=== PATIENT | male | born 2000 | race African-American/Black ===

== ENCOUNTER 2024-10-09 19:38 | Emergency (ER) | payer SELFPAY ==
[2024-10-09 19:59] LABS: Absolute Basophils 0.1 K/uL (0-0.5); Absolute Eosinophils 0.4 K/uL (0-0.5); Absolute Lymphocytes (CBC) 1.8 K/uL (0.7-4.9); Absolute Monocytes 0.9 K/uL (0.1-1.3); Absolute Neutrophil 7.5 K/uL (1.8-8.0); Basophils % 0.5 % (0-1.3); Eosinophils % 3.7 % (0-4.4); Hematocrit 42.1 % (39.6-49.0); Hemoglobin 14.4 g/dL (13.6-17.9); MCH 28.2 pg (27.0-35.0); MCHC 34.3 g/dL (32.0-36.0); MCV 82.3 fL (80-100); MPV 9.3 fL (7.6-11.3); Monocytes % 8.5 % (3.3-12.3); Neutrophils % 70.3 % (41.7-73.7); Nucleated Red Blood Cells % 0.1 % (0-0); Platelets 208 thou/uL (152-406); RBC Red Blood Cell Count 5.11 M/uL (4.33-5.43); Red Cell Distribution Width 13.6 % (12.1-15.2)
[2024-10-09 20:05] LABS: PT Prothrombin Time 12.7 SECONDS (10-13.0); PTT, Activated Partial Thromb 25.5 SECONDS (27.2-37.4); Protime INR 1.12
[2024-10-09] MEDS ORDERED: NA CHLORIDE 0.9% 1,000 ML ONE (20:05)
[2024-10-09 20:27] LABS: ALT/SGPT 46 U/L (16-61); AST/SGOT 40 U/L (15-37); Albumin 3.8 g/dL (3.4-5.0); Alkaline Phosphatase 86 U/L (45-117); Anion Gap 9.7 mEq/L (5.0-15.0); BUN Blood Urea Nitrogen 15 mg/dL (7-18); Bicarbonate 27 mEq/L (21-32); Bilirubin Direct < 0.2 mg/dL (0-0.2); Bilirubin Indirect, Calculated 0.3 mg/dL (0.2-0.8); Bilirubin Total 0.5 mg/dL (0.2-1.0); Creatine Phosphokinase 1161 U/L (39-308); Globulin 3.7 g/dL (2.3-3.5); Glomerular Filtration Rate 80 ml/min (=/>90); Glucose Level 119 mg/dL (74-106); Magnesium 1.6 mg/dL (1.6-2.4); Potassium 3.7 mEq/L (3.5-5.1); Protein, Total 7.5 g/dL (6.4-8.2); Sodium Level 137 mEq/L (136-145); Troponin High Sensitivity 3.2 pg/mL (<58.9)
--- NOTE | 2024-10-09 22:20 | ER ---
Nurse's Notes [facility] Name: Marissa Davis Age: 24 yrs Sex: Male : 2000 Arrival Date: 10/09/2024 Time: 19:38 Bed 7 Private MD: Diagnosis: Rhabdomyolysis Presentation: 10/09 19:40 Chief complaint: EMS states: Called to patient's home for syncopal episode lasting cm10 approximately 3 minutes. Pt was diaphoretic upon EMS arrival. 19:40 Coronavirus screen: Client denies travel out of the [place] in the last 14 days. Ebola cm10 Screen: Patient denies travel to an Ebola-affected area in the 21 days before illness onset. Initial Sepsis Screen: Does the patient meet any 2 criteria? HR > 90 bpm. Does the patient have a suspected source of infection? No. Patient's initial sepsis screen is negative. Risk Assessment: Do you want to hurt yourself or someone else? Patient reports no desire to harm self or others. Onset of symptoms was October 09, 2024. Care prior to arrival: Medication(s) given: Normal saline infusion, 350mL IV initiated. 18 GA, in the left antecubital area, Glucose check: 90. 19:40 Method Of Arrival: EMS: [facility] cm10 21:09 Acuity: ZACK 3 kd3 Triage Assessment: 19:40 General: Appears in no apparent distress. comfortable, Behavior is calm, cooperative. cm10 Pain: Denies pain. Neuro: No deficits noted. Level of Consciousness is awake, alert, obeys commands, Oriented to person, place, time, situation, Appropriate for age Reports a syncopal episode. Respiratory: No deficits noted. Airway is patent Respiratory effort is even, unlabored, Respiratory pattern is regular, symmetrical. Historical: - Allergies: 21:11 No Known Allergies; cm10 - Home Meds: 21:11 None [Active]; cm10 - PMHx: 21:11 None; cm10 - PSHx: 21:11 Appendectomy; cm10 - Immunization history:: Adult Immunizations up to date. - Infectious Disease History:: Denies. - Social history:: Smoking status: Patient reports the use of cigarette tobacco products, denies chronic smoking, but will smoke occasionally, cigars. Screenin:51 [facility] ED Fall Risk Assessment (Adult) History of falling in the last 3 months, dd2 including since admission Yes- single mechanical fall (1 pt) Confusion or Disorientation No (0 pts) Intoxicated or Sedated No (0 pts) Impaired Gait No (0 pts) Mobility Assist Device Used No (0 pt) Altered Elimination No (0 pt) Score/Fall Risk Level 0 - 2 = Low Risk Oriented to surroundings, Maintained a safe environment, Educated pt \T\ family on fall prevention, incl call for assistance when getting out of bed, Assessed \T\ reinforced patient's understanding of fall precautions, Hourly rounding (assess needs \T\ fall precautionary measures) done. Abuse screen: Denies threats or abuse. Denies injuries from another. Nutritional screening: No deficits noted. Tuberculosis screening: No symptoms or risk factors identified. Assessment: 22:51 Neuro: Level of Consciousness is awake, alert, obeys commands, Oriented to person, kd3 place, time, situation. Cardiovascular: Rhythm is regular. Vital Signs: 19:40 BP 120 / 54; Pulse 100; Resp 18; Temp 99.5(O); Pulse Ox 100% on R/A; Weight 92.99 kg; oe Height 5 ft. 11 in. ; 19:49 BP 120 / 56 Supine; Pulse 89; Pulse Ox 100% on R/A; oe 19:52 BP 127 / 63 Sitting; Pulse 93; Pulse Ox 100% on R/A; oe 19:54 BP 129 / 74 Standing; Pulse 99; Pulse Ox 100% on R/A; oe 21:09 BP 121 / 67; Pulse 100; Resp 19; Pulse Ox 100% on R/A; kd3 22:52 BP 112 / 59; Pulse 78; Resp 19; Pulse Ox 99% on R/A; kd3 19:40 Body Mass Index 28.59 (92.99 kg, 180.34 cm) oe [place] Coma Score: 19:51 Eye Response: spontaneous(4). Motor Response: obeys commands(6). Verbal Response: dd2 oriented(5). Total: 15. ED Course: 19:39 Patient arrived in ED. vk 19:41 Shabana Whitehead FNP-C [facility]. kb 19:41 Naya Felipe MD is Attending Physician. kb 19:50 BALTAZAR GARCIA RN is Primary Nurse. dd2 19:51 Basic Metabolic Panel Sent. dd2 19:51 CBC with Diff Sent. dd2 19:51 Hepatic Function Sent. dd2 19:51 Magnesium Sent. dd2 19:51 Protime (+inr) Sent. dd2 19:51 Ptt, Activated Sent. dd2 19:51 Troponin High Sensitivity Sent. dd2 19:51 Initial lab(s) drawn, by me, sent to lab. EKG done, by ED staff, reviewed by Shabana MURDOCK. Maintain EMS IV. Dressing intact. Good blood return noted. Site clean \T\ dry. Gauge \T\ site: 18G LAC. Flushed with 10 mL NS IV was discontinued by the patient. is patent, is intact, with fluids infusing freely, with good blood return. Patient maintains SpO2 saturation greater than 95% on room air. 19:51 No provider procedures requiring assistance completed. dd2 19:51 Patient has correct armband on for positive identification. Bed in low position. Call dd2 light in reach. Side rails up X2. Client placed on continuous cardiac and pulse oximetry monitoring. NIBP monitoring applied. bus monitor on. Door closed. Noise minimized. Warm blanket given. Pillow given. Verbal reassurance given. 21:09 Triage completed. kd3 22:52 IV discontinued, intact, bleeding controlled, No redness/swelling at site. Pressure kd3 dressing applied. 22:52 Provided Education on: d/c instructions . kd3 22:52 Arm band placed on. kd3 Administered Medications: 20:07 Drug: NS 0.9% IV 1000 ml IV at 1000 ml once; to be given as a bolus over 60 minutes dd2 Route: IV; Rate: 1000 ml; Site: left antecubital; 22:53 Follow up: IV Status: Completed infusion kd3 21:07 Drug: NS 0.9% IV 1000 ml IV at 1000 ml once; to be given as a bolus over 60 minutes cm10 Route: IV; Rate: 1000 ml; Site: left antecubital; 22:53 Follow up: IV Status: Completed infusion kd3 Medication: 19:51 VIS not applicable for this client. dd2 Outcome: 22:20 Discharge ordered by MD. diaz 22:51 Discharged to home ambulatory, kd3 22:51 Condition: stable 22:51 Discharge instructions given to patient, Instructed on discharge instructions, Demonstrated understanding of instructions, 22:53 Patient left the ED. kd3 Signatures: Shabana Whitehead, LEAD PRESSMAN-C LEAD PRESSMAN-Ckb Piero Ayala oe Shani Marie RN RN kd3 Shannon Kang RN RN cm10 Christine Thorpe DIANA, RN RN dd2 Corrections: (The following items were deleted from the chart) 19:59 19:49 BP 120 / 56; Pulse 89bpm; Pulse Ox 100% RA; oe oe 21:11 21:09 Chief complaint: compa rios
--- NOTE | 2024-10-09 22:20 | EDPHYS ---
Physician Documentation [facility] Name: Marissa Davis Age: 24 yrs Sex: Male : 2000 Arrival Date: 10/09/2024 Time: 19:38 Bed 7 Private MD: ED Physician Naya Felipe HPI: 10/09 20:03 This 24 yrs old Black Male presents to ER via Unassigned with complaints of Syncope. kb 20:03 Pt is a 24 year old male with no medical history who presents for syncopal episode. kb States he worked outside all day and was feeling lightheaded before he got into the shower. States he took a shower and felt like he was going to pass out so he tried to "walk it off" and passed out. Denies any injuries. States he is feeling better now. Reports he drank alcohol over the weekend and didn't hydrate like he should have so this could be due to dehydration. . Historical: - Allergies: 21:11 No Known Allergies; cm10 - Home Meds: 21:11 None [Active]; cm10 - PMHx: 21:11 None; cm10 - PSHx: 21:11 Appendectomy; cm10 - Immunization history:: Adult Immunizations up to date. - Infectious Disease History:: Denies. - Social history:: Smoking status: Patient reports the use of cigarette tobacco products, denies chronic smoking, but will smoke occasionally, cigars. ROS: 20:02 Constitutional: As per HPI kb Exam: 20:02 Constitutional: This is a well developed, well nourished patient who is awake, alert, kb and in no acute distress. Head/Face: Normocephalic, atraumatic. ENT: Moist Mucous membranes Cardiovascular: Regular rate Respiratory: Respirations even and unlabored. No increased work of breathing. Talking in full sentences Abdomen/GI: Soft, non-tender. No distention Skin: Warm, dry with normal turgor. Normal color. MS/ Extremity: Pulses equal, no cyanosis. Neurovascular intact. Full, normal range of motion. Neuro: Awake and alert, GCS 15, oriented to person, place, time, and situation. 20:03 ECG was reviewed by the Attending Physician. kb Vital Signs: 19:40 BP 120 / 54; Pulse 100; Resp 18; Temp 99.5(O); Pulse Ox 100% on R/A; Weight 92.99 kg; oe Height 5 ft. 11 in. ; 19:49 BP 120 / 56 Supine; Pulse 89; Pulse Ox 100% on R/A; oe 19:52 BP 127 / 63 Sitting; Pulse 93; Pulse Ox 100% on R/A; oe 19:54 BP 129 / 74 Standing; Pulse 99; Pulse Ox 100% on R/A; oe 21:09 BP 121 / 67; Pulse 100; Resp 19; Pulse Ox 100% on R/A; kd3 22:52 BP 112 / 59; Pulse 78; Resp 19; Pulse Ox 99% on R/A; kd3 19:40 Body Mass Index 28.59 (92.99 kg, 180.34 cm) oe [place] Coma Score: 19:51 Eye Response: spontaneous(4). Motor Response: obeys commands(6). Verbal Response: dd2 oriented(5). Total: 15. MDM: 19:41 Medical Screening Exam initiated kb 22:19 Differential Diagnosis: cardiac arrhythmia, vasovagal episode, dehydration, kb rhabdomyolysis . Data reviewed: vital signs, nurses notes. Historians other than the Patient: EMS: [facility]. Counseling: I had a detailed discussion with the patient and/or guardian regarding the historical points, exam findings, and any diagnostic results supporting the discharge/admit diagnosis, lab results, the need for outpatient follow up, a family practitioner, to return to the emergency department if symptoms worsen or persist or if there are any questions or concerns that arise at home. 22:19 Test considered but Not performed: CT: ct head considered but pt has no neuro deficits, kb denies head injury/headache. 22:52 Management of patient was discussed with the following: Dr Kash diaz 10/09 19:42 Order name: Basic Metabolic Panel; Complete Time: 20:32 kb 10/09 19:42 Order name: CBC with Diff; Complete Time: 20:02 kb 10/09 19:42 Order name: Hepatic Function; Complete Time: 20:32 kb 10/09 19:42 Order name: Magnesium; Complete Time: 20:32 kb 10/09 19:42 Order name: Protime (+inr); Complete Time: 20:06 kb 10/09 19:42 Order name: Ptt, Activated; Complete Time: 20:06 kb 10/09 19:42 Order name: Troponin High Sensitivity; Complete Time: 20:32 kb 10/09 19:42 Order name: CPK; Complete Time: 20:32 kb 10/09 19:42 Order name: Cardiac monitoring; Complete Time: 19:50 kb 10/09 19:42 Order name: EKG - Nurse/Tech; Complete Time: 19:50 kb 10/09 19:42 Order name: IV Saline Lock; Complete Time: 19:51 kb 10/09 19:42 Order name: Labs collected and sent; Complete Time: 19:51 kb 10/09 19:42 Order name: NPO; Complete Time: 19:51 kb 10/09 19:42 Order name: O2 Per Protocol; Complete Time: 19:51 kb 10/09 19:42 Order name: O2 Sat Monitoring; Complete Time: 19:51 kb 10/09 19:42 Order name: Orthostatics; Complete Time: 20:04 kb EC:03 Rate is 86 beats/min. Rhythm is regular. QRS [place] is Normal. MA interval is normal at kb 128 msec. QRS interval is normal at 84 msec. QT interval is normal at 409 msec. Administered Medications: 20:07 Drug: NS 0.9% IV 1000 ml IV at 1000 ml once; to be given as a bolus over 60 minutes dd2 Route: IV; Rate: 1000 ml; Site: left antecubital; 22:53 Follow up: IV Status: Completed infusion kd3 21:07 Drug: NS 0.9% IV 1000 ml IV at 1000 ml once; to be given as a bolus over 60 minutes cm10 Route: IV; Rate: 1000 ml; Site: left antecubital; 22:53 Follow up: IV Status: Completed infusion kd3 Disposition Summary: 10/09/24 22:20 Discharge Ordered Notes: Location: Home kb Condition: Stable kb Diagnosis - Rhabdomyolysis kb Followup: kb - With: Emergency Department - When: As needed - Reason: Worsening of condition Followup: kb - With: Private Physician - When: 2 - 3 days - Reason: Recheck today's complaints, Continuance of care, Re-evaluation by your physician Discharge Instructions: - Discharge Summary Sheet kb - Rhabdomyolysis kb Forms: - Work release form kb - Medication Reconciliation Form kb - Antibiotic Education kb - Prescription Opioid Use kb - Patient Portal Instructions kb - Leadership Thank You Letter kb Addendum: 10/11/2024 07:12 Co-signature as Attending Physician, Naya Felipe MD I agree with the assessment and g b1 plan of care. I reviewed the patient's care provided by the Advanced Practice Provider and agree with the diagnosis and treatment plan. Signatures: Dispatcher [employer] EDShabana Pal, TOW MOTOR MECHANIC-C TOW MOTOR MECHANIC-Shannon Bajwa, RN RN cm10 Naya Felipe MD MD gb1 BALTAZAR GARCIA RN RN dd2 Shani Marie RN kd3 Corrections: (The following items were deleted from the chart) 10/09 19:42 19:42 BASIC METABOLIC PANEL+C.LAB.BRZ ordered. EDMS EDMS 19:42 19:42 CBC+H.LAB.BRZ ordered. EDMS EDMS 19:42 19:42 HEPATIC FUNCTION+C.LAB.BRZ ordered. EDMS EDMS 19:42 19:42 MAGNESIUM+C.LAB.BRZ ordered. EDMS EDMS 19:42 19:42 PROTIME (+INR)+COAG.LAB.BRZ ordered. EDMS EDMS 19:42 19:42 PTT, ACTIVATED+COAG.LAB.BRZ ordered. EDMS EDMS 19:42 19:42 Troponin High Sensitivity+C.LAB.BRZ ordered. EDMS EDMS 19:42 19:42 CREATINE PHOSPHOKINASE+C.LAB.BRZ ordered. EDMS EDMS 22:20 22:19 Differential Diagnosis: cardiac arrhythmia, vasovagal episode, dehydration, kb rhabdomyolitis, kb
[2024-10-09 22:59] VITALS: TEMP 99.5
[2024-10-09 23:05] VITALS: BP 112/59; O2SAT 99
--- NOTE | 2024-10-11 12:41 | EKG ---
Test Date: 2024-10-09 Test Time: 19:48:19 Laborer Driver: JARVIS MEASUREMENT RESULTS: Intervals: Rate: 86 OK: 128 QRSD: 84 QT: 342 QTc: 409 [place]: P: 50 OK: 128 QRS: 62 T: 30 INTERPRETIVE STATEMENTS: Normal sinus rhythm Normal ECG No previous ECG available for comparison Electronically Signed On 10-11-24 12:37:05 CDT by Karan Roe
== END 2024-10-09 22:53 | disposition home or self-care (01) ==
LOC: ER 19:38
DX: M62.82 Rhabdomyolysis (principal)
CPT/HCPCS: 36415; 80048; 80076; 82550; 83735; 84484; 85025; 85610; 85730; 93005; 96360; 96361; 99285; J7030

== ENCOUNTER 2025-02-13 16:19 | Emergency (ER) | payer SELFPAY ==
--- OUTSIDE RECORDS SUMMARY | 2025-02-13 16:21 | XMS REPORT | Continuity of Care Document ---
Author Name Unknown Address [address] [place] [address] [place] [address] [place] [address] Care Team Providers Care Egg Gatherer Name Role Phone CLAUDETTE HERNDON Attending Clinician Unavailable Encounters Start Date/Time End Date/Time Encounter Type Admission Type Attending Clinicians Care Facility Care Department Encounter ID Source 2025-01-18 05:35:00 2025-01-18 06:54:00 Emergency Emergency CLAUDETTE HERNDON [id number] [facility]
[2025-02-13 17:18] LABS: Absolute Lymphocytes (CBC) 2.0 K/uL (0.7-4.9); Hematocrit 44.2 % (39.6-49.0); Hemoglobin 14.8 g/dL (13.6-17.9); MCH 27.5 pg (27.0-35.0); MCHC 33.4 g/dL (32.0-36.0); MCV 82.3 fL (80-100); MPV 9.0 fL (7.6-11.3); Nucleated RBC Absolute Count 0.0 (0-0); Nucleated Red Blood Cells % 0.4 % (0-0); RBC Red Blood Cell Count 5.37 M/uL (4.33-5.43); White Blood Count 6.10 thou/uL (4.3-10.9)
[2025-02-13 17:36] LABS: ALT/SGPT 33.0 U/L (16-61); AST/SGOT 15.0 U/L (15-37); Albumin 4.3 g/dL (3.4-5.0); Albumin/Globulin Ratio 1.3 (1.1-1.8); Alkaline Phosphatase 75.0 U/L (45-117); Anion Gap 10.0 mEq/L (5.0-15.0); BUN Blood Urea Nitrogen 8.0 mg/dL (7-18); Globulin 3.3 g/dL (2.3-3.5); Glucose Level 94.0 mg/dL (74-106); Lipase 29.0 U/L (13-75); Potassium 4.0 mEq/L (3.5-5.1)
--- NOTE | 2025-02-13 18:42 | RAD REPORT ---
EXAM:Pelvis Angio CLINICAL HISTORY: Gastrointestinal bleeding. Abdominal pain TECHNIQUE: Computed tomography angiography of the pelvis obtained. MIPS reconstruction performed.. 100 cc Isovue -370 administered intravenously. Axial, sagittal and coronal reconstructions were obtained. One or more of the following dose reduction techniques were used: Automated exposure control, adjustment of the mA and kV according to patient size, and iterative reconstruction. Unless otherwise specified, incidental findings do not require dedicated imaging follow-up. COMPARISON: None FINDINGS: No abnormal density seen within stomach, duodenum, small and large bowel. Abdominal aorta, iliac and common femoral arteries unremarkable. Celiac, SMA and MAGNO unremarkable Renal arteries unremarkable. Liver, spleen, pancreas, adrenals and kidneys unremarkable Appendectomy. No evidence of diverticulitis IMPRESSION: No evidence of active gastrointestinal bleeding during this examination.
--- NOTE | 2025-02-13 18:42 | RAD REPORT ---
EXAM:Abdomen Angio CLINICAL HISTORY: Gastrointestinal bleed. Abdominal pain. TECHNIQUE: Computed tomography angiography of the abdomen obtained. MIPS reconstruction performed.. 100 cc Isovu e-370 administered intravenously. Axial, sagittal and coronal reconstructions were obtained. One or more of the following dose reduction techniques were used: Automated exposure control, adjustment of the mA and kV according to patient size, and iterative reconstruction. Unless otherwise specified, incidental findings do not require dedicated imaging follow-up. COMPARISON: None FINDINGS: No abnormal density seen within stomach, duodenum, small and large bowel. Abdominal aorta, iliac and common femoral arteries unremarkable. Celiac, SMA and MAGNO unremarkable Renal arteries unremarkable. Liver, spleen, pancreas, adrenals and kidneys unremarkable Appendectomy. No evidence of diverticulitis IMPRESSION: No evidence of active gastrointestinal bleeding during this examination.
--- NOTE | 2025-02-13 18:43 | RAD REPORT ---
EXAMINATION: CT ABDOMEN AND PELVIS WITHOUT CONTRAST CLINICAL INDICATION: Abdominal pain. Gastrointestinal bleed TECHNIQUE: CT abdomen and pelvis was performed, as per department protocol. IV contrast and oral was not administered.Axial, sagittal and coronal reconstructions were obtained. One or more of the following dose reduction techniques were used: Automated exposure control, adjustment of the mA and/o r kV according to the patient size, and/or iterative reconstruction. Unless otherwise specified, incidental findings do not require dedicated imaging follow-up. [id number]. COMPARISON: No prior exam. FINDINGS: No abnormal density seen within stomach, duodenum, small and large bowel. Abdominal aorta, iliac and common femoral arteries unremarkable. Celiac, SMA and MAGNO unremarkable Renal arteries unremarkable. Liver, spleen, pancreas, adrenals and kidneys unremarkable Appendectomy. No evidence of diverticulitis IMPRESSION: No evidence of active gastrointestinal bleeding during this examination.
--- NOTE | 2025-02-13 18:53 | ER ---
Nurse's Notes [facility] Name: Marissa Davis Age: 25 yrs Sex: Male : 2000 Arrival Date: 02/13/2025 Time: 16:19 Bed 8 Private MD: Diagnosis: Internal hemorrhoids Presentation: 02/13 16:57 Chief complaint: Patient states: Reports BM at work today that was bright red. No me1 n/v/d/pain. Reports he did have some diarrhea a few weeks ago that had resolved. Coronavirus screen: Vaccine status: Patient reports being unvaccinated. Ebola Screen: No symptoms or risks identified at this time. Initial Sepsis Screen: Does the patient meet any 2 criteria? RR > 20 per min. Does the patient have a suspected source of infection? No. Patient's initial sepsis screen is negative. Risk Assessment: Do you want to hurt yourself or someone else? Patient reports no desire to harm self or others. Onset of symptoms was February 13, 2025. 16:57 Method Of Arrival: Ambulatory [facility] 16:57 Acuity: ZACK 3 me1 Triage Assessment: 16:58 General: Appears in no apparent distress. well groomed, well developed, well nourished, me1 Behavior is calm, cooperative, appropriate for age, Reports bright red bm today at work. Pain: Denies pain. EENT: No signs and/or symptoms were reported regarding the EENT system. Neuro: Level of Consciousness is awake, alert, obeys commands, Oriented to person, place, time, situation, Appropriate for age. Cardiovascular: Patient's skin is warm and dry. Respiratory: Airway is patent Respiratory effort is even, unlabored, Respiratory pattern is regular, symmetrical. GI: Abdomen is non-distended, Bowel sounds present X 4 quads. Reports bloody stool. : No signs and/or symptoms were reported regarding the genitourinary system. Derm: Skin is intact, is healthy with good turgor, Skin is normal. Musculoskeletal: Circulation, motion, and sensation intact. Range of motion: intact in all extremities. Historical: - Allergies: 16:58 No Known Allergies; me1 - PMHx: 16:58 Anxiety; Depressive disorder; me1 - PSHx: 16:58 Appendectomy; me1 - Immunization history:: Adult Immunizations up to date. - Infectious Disease History:: Denies. - Social history:: Smoking status: Patient denies any tobacco usage or history of. Screenin:00 [facility] ED Fall Risk Assessment (Adult) History of falling in the last 3 months, me1 including since admission No falls in past 3 months (0 pts) Confusion or Disorientation No (0 pts) Intoxicated or Sedated No (0 pts) Impaired Gait No (0 pts) Mobility Assist Device Used No (0 pt) Altered Elimination No (0 pt) Score/Fall Risk Level 0 - 2 = Low Risk Maintained a safe environment, Provided non-skid footwear, Hourly rounding (assess needs \T\ fall precautionary measures) done. Abuse screen: Denies threats or abuse. Nutritional screening: No deficits noted. Tuberculosis screening: No symptoms or risk factors identified. Assessment: 17:00 General: See triage assessment. me1 Vital Signs: 16:57 BP 162 / 70; Pulse 53; Resp 17; Temp 98.4; Pulse Ox 100% ; Weight 104.33 kg; Height 5 me1 ft. 11 in. ; Pain 0/10; 17:00 BP 146 / 77; Pulse 57; Resp 16; Pulse Ox 100% ; me1 19:00 BP 110 / 56; Pulse 65; Resp 15; Temp 98.4; Pulse Ox 100% ; me1 16:57 Body Mass Index 32.08 (104.33 kg, 180.34 cm) me1 16:57 Pain Scale: Adult me1 ED Course: 16:23 Patient arrived in ED. al6 16:24 [facility]. sb4 16:24 Polo Parkinson MD is Attending Physician. sb4 16:47 Radiology exam delayed due to lab results not completed at this time. (BUN/Creatinine) jc4 IV insertion attempt and/or patient not having appropriate IV at this time. 16:57 Nicki Fernando, CHARI is Primary Nurse. me1 16:58 Triage completed. me1 16:58 Arm band placed on Patient placed in an exam room. me1 17:00 Patient has correct armband on for positive identification. Bed in low position. Call me1 light in reach. Side rails up X2. Provided Education on: POC. Verbalized understanding.. Client placed on continuous cardiac and pulse oximetry monitoring. NIBP monitoring applied. Pulse ox on. NIBP on. 17:00 No provider procedures requiring assistance completed. me1 17:12 Radiology exam delayed due to lab results not completed at this time. (BUN/Creatinine). ls3 17:12 CBC with Diff Sent. me1 17:12 CMP Sent. me1 17:12 Lipase Sent. me1 17:12 Initial lab(s) drawn, by me, sent to lab. Inserted saline lock: 20 gauge in right me1 antecubital area, using aseptic technique. 18:25 Abdomen Angio In Process Unspecified. EDMS 18:26 Pelvis Angio In Process Unspecified. EDMS 18:26 Abdomen In Process Unspecified. EDMS 18:52 Mina Mills MD is Referral Physician. sb4 19:16 IV discontinued, intact, bleeding controlled, No redness/swelling at site. Pressure al5 dressing applied. Administered Medications: No medications were administered Medication: 17:00 VIS not applicable for this client. me1 Outcome: 18:53 Discharge ordered by . sb4 19:16 Discharged to home ambulatory, al5 19:16 Condition: good 19:16 Discharge instructions given to patient, Instructed on discharge instructions, follow up and referral plans. Demonstrated understanding of instructions, follow-up care, 19:17 Patient left the ED. al5 Signatures: Dispatcher [employer] EDMS Johnny Tiwari ls3 Julia Strickland PA-C PATammy sb4 Nicki Fernando, RN RN me1 Tasha Arriaga RN RN al5 Dwayne Fall jc4 Yolis Ruiz al6
--- NOTE | 2025-02-13 18:53 | EDPHYS ---
Physician Documentation [facility] Name: Marissa Davis Age: 25 yrs Sex: Male : 2000 Arrival Date: 02/13/2025 Time: 16:19 Bed 8 Private MD: ED Physician Polo Parkinson HPI: 02/13 16:53 This 25 yrs old Black Male presents to ER via Unassigned with complaints of Bloody sb4 Stools. 16:53 Had a bowel movement at work today and there was bright red blood in the stool. Denies sb4 any abdominal pain or rectal pain. Denies any history of hemorrhoids. States he has been intermittent fasting and drinking watermelon juice. Called his PCP and was told to come to the ED for further eval. States he has been having "stomach issues "over the past month but he attributed that to eating unhealthy. Denies any nausea or vomiting. Does not have any significant medical history. Historical: - Allergies: 16:58 No Known Allergies; me1 - PMHx: 16:58 Anxiety; Depressive disorder; me1 - PSHx: 16:58 Appendectomy; me1 - Immunization history:: Adult Immunizations up to date. - Infectious Disease History:: Denies. - Social history:: Smoking status: Patient denies any tobacco usage or history of. ROS: 16:53 Constitutional: Negative for fever, chills, and weight loss, sb4 16:53 Abdomen/GI: Positive for Per HPI, 16:53 All other systems are negative, Exam: 16:53 Constitutional: This is a well developed, well nourished patient who is awake, alert, sb4 and in no acute distress. Head/Face: Normocephalic, atraumatic. Eyes: Extra-ocular motions intact. Periorbital areas with no swelling, redness, or edema. ENT: Mucous membranes moist. Cardiovascular: Regular rate and rhythm with a normal S1 and S2. Respiratory: No increased work of breathing, no retractions or nasal flaring. Abdomen/GI: Soft, non-tender, no distension. Skin: Warm, dry with normal turgor. Normal color with no rashes, no lesions, and no evidence of cellulitis. 18:51 Abdomen/GI: Rectal exam: is unremarkable, rectal tone normal, Stool: normal, sb4 tenderness, is not appreciated, the exam is chaperoned by the nurse, Vital Signs: 16:57 BP 162 / 70; Pulse 53; Resp 17; Temp 98.4; Pulse Ox 100% ; Weight 104.33 kg; Height 5 me1 ft. 11 in. ; Pain 0/10; 17:00 BP 146 / 77; Pulse 57; Resp 16; Pulse Ox 100% ; me1 19:00 BP 110 / 56; Pulse 65; Resp 15; Temp 98.4; Pulse Ox 100% ; me1 16:57 Body Mass Index 32.08 (104.33 kg, 180.34 cm) me1 16:57 Pain Scale: Adult me1 MDM: 16:29 Medical Screening Exam initiated sb4 18:51 Differential diagnosis: colitis, hemorrhoids, GI bleed, anal fissure. Data reviewed: sb4 vital signs, nurses notes, lab test result(s), radiologic studies, and as a result, I will discharge patient. Counseling: I had a detailed discussion with the patient and/or guardian regarding the historical points, exam findings, and any diagnostic results supporting the discharge/admit diagnosis, the presence of at least one elevated blood pressure reading (>120/80) during this emergency department visit, lab results, radiology results, the need for outpatient follow up, a furniture repairer, to return to the emergency department if symptoms worsen or persist or if there are any questions or concerns that arise at home. 02/13 16:46 Order name: CBC with Diff; Complete Time: 17:25 sb4 02/13 16:46 Order name: CMP; Complete Time: 17:37 sb4 02/13 16:46 Order name: Lipase; Complete Time: 17:37 sb4 02/13 16:53 Order name: Abdomen Angio; Complete Time: 18:43 EDMS 02/13 16:55 Order name: Pelvis Angio; Complete Time: 18:43 EDMS 02/13 16:55 Order name: Abdomen ; Complete Time: 18:43 EDMS 02/13 16:46 Order name: IV Saline Lock; Complete Time: 17:12 sb4 02/13 16:46 Order name: Labs collected and sent; Complete Time: 17:12 sb4 02/13 16:46 Order name: Gown patient; Complete Time: 17:12 sb4 Administered Medications: No medications were administered Disposition Summary: 02/13/25 18:53 Discharge Ordered Notes: Location: Home sb4 Problem: new sb4 Symptoms: have improved sb4 Condition: Stable sb4 Diagnosis - Internal hemorrhoids sb4 Followup: sb4 - With: Mina Mills MD - When: As needed - Reason: Further diagnostic work-up, Recheck today's complaints, Re-evaluation by your physician Discharge Instructions: - Discharge Summary Sheet sb4 - Hemorrhoids, [id number] sb4 Forms: - Patient Portal Instructions sb4 - Leadership Thank You Letter sb4 Signatures: Dispatcher [employer] Julia Yuan, PA-C PA-C sb4 Nicki Fernando, RN RN me1 Corrections: (The following items were deleted from the chart) 16:55 16:46 Abdomen Pelvis W Con+CT.RAD.[id number] ordered. MAYKEL BRAR
[2025-02-13 22:30] VITALS: TEMP 98.4; O2SAT 100
[2025-02-13 22:33] VITALS: BP 110/56
== END 2025-02-13 19:17 | disposition home or self-care (01) ==
LOC: ER 16:19
DX: K64.8 Other hemorrhoids (principal)
CPT/HCPCS: 36415; 72191; 74175; 74176; 80053; 83690; 85025; Q9967